=== PATIENT | male | born 1970 | race Caucasian/White ===

== ENCOUNTER 2022-10-28 17:24 | Emergency (ER) | payer OTHER, SELFPAY ==
[2022-10-28 17:25] VITALS: BP 117/76; PULSE 69; RESP 16; TEMP 36.7; O2SAT 97; BMI 30.4
[2022-10-28] MEDS: tetanus-dipt-pertussis 0.5 mL SDV IM (18:15)
--- NOTE | 2022-10-28 19:05 | XRR_ITS ---
PROCEDURE INFORMATION: Exam: XR Left Finger(s) Exam date and time: 10/28/2022 7:38 PM Age: 52 years old Clinical indication: Injury or trauma; Other: Table saw inj left thumb; Laceration; Finger; Additional info: Laceration, saw blade laceration- attn thumb pad TECHNIQUE: Imaging protocol: Radiologic exam of the left fingers. Views: Minimum 2 views. COMPARISON: No relevant prior studies available. FINDINGS: Bones/joints: There is a minimally displaced fracture of the distal left 1st phalanx. No dislocation. Soft tissues: There is soft tissue injury of the distal left 1st digit. No concerning radioopaque foreign bodies are identified. XR/XR finger LT min 2V 73212 IMPRESSION: There is a minimally displaced fracture of the distal left 1st phalanx.
[2022-10-28] MEDS: lidocaine 1% INJ 10 mL (per mL) INTRADERMA (20:23)
--- NOTE | 2022-10-28 20:59 | W.ED.WOUNDLC ---
HPI - Wound/Laceration General: Chief Complaint: Wound/Laceration Stated Complaint: Left thumb lac Time Seen by Provider: 10/28/22 18:02 Source: patient Mode of arrival: ambulatory Limitations: no limitations History of Present Illness: Patient presents emergency department today for evaluation treatment of injury sustained to his left thumb pad from a table saw. Patient states he was trimming down some boards and indicated he went to reach for a cut off piece when he accidentally impacted his thumb against the sawblade. Bleeding has been controlled. He is not sure of his last tetanus immunization. Review of Systems General: Reports: 10 or more systems reviewed and unremarkable except in HPI and below Physical Exam Const: COMMON NORMALS: no acute distress, average body habitus and patient oriented x3 HENMT: COMMON NORMALS: normocephalic, atraumatic, hearing grossly normal bilaterally, Normal external nose present and moist oral mucous membranes HEAD & SCALP: normocephalic and atraumatic NOSE: Normal external nose present Eye: COMMON NORMALS: Equal, round and reactive pupils present, EOMs intact bilaterally and conjunctivae normal CONJUNCTIVA: Yes conjunctivae normal PUPIL: Yes Equal, round and reactive pupils present Neck/C-Spine: COMMON NORMALS: no JVD Lymph: LYMPHATIC: no lymphadenopathy noted Resp: COMMON NORMALS: normal respiratory effort, No retractions and No use of accessory muscles Cardio: COMMON NORMALS: no JVD, regular rate and regular rhythm RATE: regular rate RHYTHM: regular rhythm GI: COMMON NORMALS: Normal to inspection, nondistended, normoactive bowel sounds present : COMMON NORMALS: Yes no CVA tenderness BLADDER/KIDNEY EXAM: Yes no CVA tenderness Back/Pelvis: COMMON NORMALS: no CVA tenderness and thoraco-lumbar ROM normal Extremity: COMMON NORMALS: normal to inspection, full ROM and capillary refill normal NARRATIVE EXTREMITY EXAM: Patient is able to flex and extend the thumb. Neuro: COMMON NORMALS: patient oriented x3 Psych: COMMON NORMALS: mental status grossly normal, Normal thought process present, cooperative, normal affect and activity/motor behavior normal THOUGHT PROCESS: Normal thought process present Skin: NARRATIVE SKIN EXAM: Patient has a large laceration extending vertically through the finger pad of the left thumb. It does spare the nail. Bleeding is well controlled but, there is significant amount of soft tissue exposure within the wound. Procedures Laceration Laceration 1: Site: hand (Thumb pad) Side (If applicable): left Size (cm): 3 Description: linear and irregular Depth: involves muscle layer (Laceration through soft tissue to the bone) Local Anesthetic: lidocaine 1% Amount of anesthesia used (mL): 6 Pre-repair: wound explored, irrigated extensively and extensive debridement Skin layer closed with: nylon Size (cm): 4-0 Number of sutures: 15 Technique: simple, interrupted Course Vital Signs: Vital signs: Vital Signs Temperature 98.1 F 10/28/22 17:25 Pulse Rate 72 10/28/22 21:11 Respiratory Rate 14 10/28/22 21:11 Blood Pressure 116/72 10/28/22 21:11 Pulse Oximetry 99 10/28/22 21:11 Oxygen Delivery Me thod Room Air 10/28/22 17:25 MDM - Wound/Laceration Medical Decision Making Patient presented to the emergency department today for significant laceration sustained to the finger pad of his left thumb. Bleeding was controlled but, x-ray confirms fracture to the underlying phalanx. Discussed open fracture with the patient. After discussion, he did opt for a ring block in addition to local anesthesia of his wound and good wound anesthesia was achieved. Patient tolerated significant irrigation with Betadine and saline flushes through the depth of the wound prior to repair. Patient was able to achieve wound edge approximation by starting with approximating sutures and filling in with 15, nonabsorbable nylon sutures. Patient had blanching of the skin on palpation and return of blood flow noted after the repair. Patient's tetanus immunization was also updated. Referral to hand specialty initiated on the patient's behalf for follow-up. He is put on a prophylactic course of antibiotics with specific wound care and suture care instructions given. Patient is to be seen and reevaluated for any acute concerns of infection. Patient verbalized understanding and agreement to treatment plan. Differential Diagnosis Likely laceration, abrasion and avulsion of skin Lab Data Radiology Impressions Finger X-Ray 10/28/22 19:05 IMPRESSION: There is a minimally displaced fracture of the distal left 1st phalanx. Discharge Plan Discharge Patient Disposition: Home Clinical Impression: Open fracture of phalanx of finger of left hand, Laceration of finger of left hand without foreign body without damage to nail Condition: Stable Prescriptions: New doxycycline hyclate 100 mg tablet 100 mg PO BID 10 Days Qty: 20 0RF Discharge Orders: Discharge ED (Routine); Ordered 10/28/22 Ordered By: Yamileth Soto Referrals: Karina Segura MD [Primary Care Provider] - Discharge Diet: Usual diet Discharge Activity: Limit activity as instructed Patient Instructions: Fractures - Phalanx (Finger), Care For Your Stitches (ED), Laceration (ED) Activity Restrictions/Additional Instructions: X-ray confirms a fracture to the end of your thumb which, with the overlying laceration does make this become an open fracture. It does put you at a higher risk of infection so we have started you on a prophylactic course of antibiotics. I have also requested a follow-up appointment with her orthopedic/hand specialist to make sure proper healing occurs, return to baseline mobility occurs, and to make sure there is no residual concerns for deeper infection. You received 15 nonabsorbable sutures which need to be removed in approximately 10 days-this is often done at your follow-up appointment with orthopedics however, if necessary, you can have them removed by your primary care doctor, urgent care, or back here in the ER. We recommend washing your wound twice a day with warm water and a mild soap. Be extremely careful not to catch or snagged the sutures on linens, towels, or clothing items. We do recommend keeping it covered with clean bandaging at all times to prevent the wound from becoming wet or soiled. If for any reason it does become wet or soiled or, the bandaging becomes wet and soiled, remove the bandaging, clean, and replace with clean bandaging. If you have any concerns regarding new onset infection involving sudden swelling, sudden redness, or discharge with thick green or yellow material you should be seen and reevaluated. We updated your tetanus immunization today. Coding Level of Care Code ED Primer [employer] Machine Adjuster for [facility]
[2022-10-28 21:11] VITALS: BP 116/72; PULSE 72; RESP 14; O2SAT 99
--- NOTE | 2022-10-30 05:12 | DCPLANNER ---
Addendum entered by Alyssa Velasco 11/18/22 10:19: Patient had a follow up appointment scheduled with ortho - patient did attend appointment. Addendum entered by Alyssa Velasco 11/04/22 14:01: Patient has a follow up appointment scheduled for Tuesday, November 08, 2022 at 11:00 with Tim Arredondo at ortho. Original Note: control system manager had message to schedule a follow up appointment for patient with ortho. control system manager sent patients information to the front office staff at ortho. Patients information will be printed and reviewed. Clinic will call patient with appointment information.
== END 2022-10-28 21:15 | disposition home or self-care (01) ==
PROVIDERS: Emergency Provider Physician Assistant; PCP Family Medicine
DX: S62.522B Displaced fracture of distal phalanx of left thumb, initial encounter for open fracture (principal); W27.0XXA Contact with workbench tool, initial encounter; Z23 Encounter for immunization
CPT/HCPCS: 12042; 73140; 90471; 90715; 99283; A6446

== ENCOUNTER → 2022-11-08 11:22 | Outpatient (BNVA) | payer OTHER, SELFPAY | PROVIDERS: PCP Family Medicine; Referring Provider Physician Assistant; Visit Provider Nurse Practitioner Family | DX: S62.522B Displaced fracture of distal phalanx of left thumb, initial encounter for open fracture (principal); W27.0XXA Contact with workbench tool, initial encounter | CPT/HCPCS: 73130 ==

== ENCOUNTER → 2022-12-09 08:16 | Outpatient (BNVA) | payer OTHER, SELFPAY | PROVIDERS: PCP Family Medicine; Visit Provider Nurse Practitioner Family | DX: S62.522B Displaced fracture of distal phalanx of left thumb, initial encounter for open fracture (principal); X58.XXXA Exposure to other specified factors, initial encounter | CPT/HCPCS: 73130 ==

== ENCOUNTER 2022-12-30 11:00 | Outpatient (RCR) | payer OTHER, SELFPAY | END 2023-01-12 23:59 | disposition home or self-care (01) | LOC: SOT 11:00 | PROVIDERS: Visit Provider Nurse Practitioner Family | DX: T14.90XD Injury, unspecified, subsequent encounter (principal); X58.XXXD Exposure to other specified factors, subsequent encounter | CPT/HCPCS: 97022; 97110; 97140; 97165 ==

== ENCOUNTER 2023-01-13 06:00 | Outpatient (RCR) | payer OTHER, SELFPAY | END 2023-02-11 23:59 | disposition home or self-care (01) | LOC: SOT 06:00 | PROVIDERS: Visit Provider Nurse Practitioner Family | DX: S62.522D Displaced fracture of distal phalanx of left thumb, subsequent encounter for fracture with routine healing (principal); W31.2XXD Contact with powered woodworking and forming machines, subsequent encounter | CPT/HCPCS: 97022; 97110; 97140 ==